=== PATIENT | female | born 1925 | race Caucasian/White ===

== ENCOUNTER → 2017-03-08 | Outpatient (CLI) | payer MEDICARE ==
[~2017-03-08] MED LIST: ACID1TAB7 PO; AMLO2.5T PO; ASPI-496 PO; ATOR10TA PO; CEFD300C2 PO; CHOL239. PO; LEVO112T2 PO; METR500T PO; PANT40TA5 PO; SINCALIDE (KINEVAC) 5 MCG ONE; VALS160T3 PO; VANC1VIA3 PO
== END | disposition home or self-care (01) ==
LOC: PETCFH 08:13
PROVIDERS: ATTEND Nurse Practitioner Family
DX: K82.8 Other specified diseases of gallbladder (principal); K83.8 Other specified diseases of biliary tract; K83.5 Biliary cyst
CPT/HCPCS: 78227; A9537; J2805